=== PATIENT | male | born 1955 | race Hispanic/Latino ===

== ENCOUNTER 2020-05-20 14:18 | Day surgery (SDC) | payer BC ==
[2020-05-20] MEDS ORDERED: EPINEPHrine 0.3 MG in Ophthalmic Irrigation Solution 500 ML IRR SCH (14:30)
[2020-05-20] MEDS ORDERED: Phenylephrine 2.5% Ophth Soln 5 ML BOT ONE (14:41)
[2020-05-20] MEDS ORDERED: Cyclopentolate 1% Ophth Drops 15 ML BOT ONE (14:41)
[2020-05-20] MEDS ORDERED: Midazolam HCl 2 mg/2 ml Vial ONE (17:02)
[2020-05-20] MEDS ORDERED: PROPOFOL 20 ML ONE (17:02)
[2020-05-20] MEDS ORDERED: Fentanyl 100 MCG/2 ML VIAL ONE (17:02)
[2020-05-20] MEDS ORDERED: PROPOFOL 200 MG/20 ML VIAL ONE (17:21)
[2020-05-20] MEDS ORDERED: Triamcinolone 40 MG/ML VIAL ONE (17:21)
[2020-05-20] MEDS ORDERED: Maxitrol 0.1% Opth Oint 3.5 GM TUBE ONE (17:21)
[2020-05-20] MEDS ORDERED: Lidocaine 4% PF 5 ML AMP ONE (17:21)
[2020-05-20] MEDS ORDERED: Bupivacaine PF 0.75% SDV 10 ML ONE (17:21)
[2020-05-20] MEDS ORDERED: Lidocaine 1% PF 5 ML VIAL ONE (17:21)
[2020-05-20] MEDS ORDERED: CEFAZOLIN 1 GM VIAL ONE (17:21)
== END 2020-05-20 19:18 | disposition home or self-care (01) ==
LOC: SDC 14:18
PROVIDERS: ATTEND Ophthalmology Retina Specialist
PROC: 08T43ZZ Resection of Right Vitreous, Percutaneous Approach (ICD-10-PCS; principal; 2020-05-20)
DX: H33.021 Retinal detachment with multiple breaks, right eye (principal)
CPT/HCPCS: 67025; J0171; J0690; J2250; J2704; J3010; J3301; J3490